=== PATIENT | male | born 1985 | race Caucasian/White ===

== ENCOUNTER → 2019-09-02 07:11 | Outpatient (CLI) | payer OTHER, MEDICAID, SELFPAY ==
[2019-09-02 07:59] LABS: Hematocrit 46.2 % (41-53); Hemoglobin 16.2 g/dL (13.5-17.5); Mean Corpuscular Hemoglobin 30.1 PG (26-34); Mean Corpuscular Volume 86.2 fL (80-100); Platelet Count 254 X10^3/uL (150-400); Red Blood Cell Count 5.36 X10^6/uL (4.5-5.9); Red Cell Distribution Width 12.7 % (11.6-14.8); White Blood Cell Count 7.6 X10^3/uL (4.5-11.0)
[2019-09-02 08:12] LABS: Alanine Aminotransferase 89 IU/L (21-72); Albumin 4.6 g/dL (3.5-5.0); Albumin Globulin Ratio 1.5 (1.0-2.8); Alkaline Phosphatase 112 U/L (38-126); Aspartate Aminotransferase 47 IU/L (17-59); BUN Creatinine Ratio 21.1 (6-22); Bilirubin Total 0.5 mg/dL (0.2-1.3); Blood Urea Nitrogen 19 mg/dL (9-20); Calcium 9.6 mg/dL (8.4-10.2); Carbon Dioxide 24 mmol/L (22-32); Chloride 105 mmol/L (98-107); Cholesterol 207 mg/dL (140-199); Estimated Glomerular Filt Rate > 60.0 mL/min (>60); Glucose 91 mg/dL (70-100); HDL Cholesterol 35 mg/dL (40-60); HEMOLYSIS < 15 (0-50); LDL Cholesterol Calculated 125 mg/dL (<100); Potassium 4.1 mmol/L (3.4-5.1); Sodium 139 mmol/L (137-145); Total Protein 7.6 g/dL (6.3-8.2); Triglycerides 237 mg/dL (35-150)
[2019-09-02 12:36] LABS: Creatinine Urine Random 69.6 mg/dL
[2019-09-02 12:41] LABS: Microalbumi Creatinin Ratio Ur 8.6 ug/mg CR (<30); Microalbumin Urine Random < 0.6 mg/dL (0-1.6)
== END ==
PROVIDERS: PCP Nurse Practitioner Family; Visit Provider Nurse Practitioner Family
DX: I10 Essential (primary) hypertension (principal); R10.11 Right upper quadrant pain; Z13.6 Encounter for screening for cardiovascular disorders
CPT/HCPCS: 36415; 80053; 80061; 82043; 82570; 85027

== ENCOUNTER 2019-09-22 09:23 | Day surgery (SDC) | payer OTHER, MEDICAID, SELFPAY ==
[2019-09-15 13:20] VITALS: BMI 37.7
[2019-09-22] VITALS (8 sets, daily range): BP systolic 107–138; BP diastolic 60–80; PULSE 72–100; RESP 15–18; TEMP 36.4–36.7; O2SAT 94–96; BMI 37.7
--- NOTE | 2019-09-22 | PATH_ITS ---
[facility] Accession Number: [id number] . 01 Material submitted: . gallbladder - GALLBLADDER AND CONTENTS . 02 Diagnosis: Gallbladder and Contents, Cholecystectomy: Mild chronic cholecystitis. No calculi grossly identified. No evidence of neoplasm. MRV 09/24/2019 1105 Local . 02 Electronically signed: . Dylon Jasmine MD, PhD, Pathologist NPI- [id number] . 01 Gross description: . Specimen is received in a formalin-filled container, labeled gallbladder and contents, and consists of a pink-pryor, smooth to cauterized, intact gallbladder, 6.8 x 3.4 x 2.7 cm, in which the cystic duct margin is inked blue. There are no calculi grossly identified. The mucosa is pryor-green, diffusely velvety, focally trabeculated with the average wall thickness of 0.3 cm. Pond Tender sections including blue-inked cystic duct margin are submitted in A1. ([id number]) /MRV 09/23/2019 1046 Local . 02 Pathologist provided ICD-10: K81.1 . 02 CPT . 978863 Performed at: 01 [facility] [address] [facility], [place], [place] [id number] MD Torito Purdy MD Phone: [phone] Performed at: 02 [facility] [address] [place], [place] [id number] MD Marly Arenas MD Phone: [phone]
[2019-09-22] MEDS: LACTATED RINGERS 1,000 ML 42 ML IV (10:04)
--- NOTE | 2019-09-22 10:12 | PM.HP.1 ---
History of Present Illness History of Present Illness Date Patient Seen: 09/22/19 Time Patient Seen: 10:12 Chief complaint: [id number] Narrative: This is a 33 yo man with history of obesity, alcohol abuse in remission, and two months of RUQ pain after eating. He was seen at [facility] and RUQ US revealed gall bladder sludge. He had a mild elevation of his LFT's, but not obstructive. He denies jaundice, fevers, nausea, vomiting. His complaint is sharp right flank and RUQ pain which comes on after eating, and migrates to the supraumbilical abdomen. He says the pain comes every time he eats regardless of what he eats. He says he has elevated blood pressure and heart rate during these episodes. He was started on Metoprolol on 08/06. He has a history of subjective palpitations and arrhythmia, and was recently seen by studio operations engineer in charge and cleared for surgery. His metoprolol was doubled at that visit. He has been taking 25 mg b.i.d. for the last nearly 2 weeks. He sometimes feels burning in his chest, but denies ever having a known heart attack. He denies diarrhea. Sometimes has constipation. He continues to have biliary colic since his visit with me last month. ROS: as per HPI. Otherwise 13 system review is negative. PE: GENERAL: Well groomed and cooperative. Appears stated age. Answers questions promptly and appropriately. Vital signs noted. HENT: Normocephalic, atraumatic. Hearing intact. Oral mucosa is pink and moist. EYES: Conjunctiva pink, sclera white, no periorbital swelling. CARDIOVASCULAR: Regular rate. No pedal edema. RESPIRATORY: Normal respiratory rate, breathing comfortably on room air. GASTROINTESTINAL: Abdomen soft, nontender, and non-distended GENITALURINARY: No flank tenderness. MUSCULOSKELETAL: Normal gait and coordination. Equal tone and mass bilaterally. SKIN: Warm, dry, soft, appropriate color for ethnicity. No other lesions, rashes, or wounds. NEURO: Alert and Oriented X 3. Good coordination. No ataxia, or sensory deficits, or cognitive issues. PSYCH: Appropriate affect and mood. Patient History Medical History Essential hypertension (Acute 07/2019) Heart palpitations (Acute) Intermittent palpitations (Acute) Obesity (BMI 35.0-39.9 without comorbidity) (Acute) RUQ abdominal pain (Acute 06/2019) Family & Social History Social History: household members significant other,other,children other Collecting baseball Tobacco & Substance use: Tobacco type e-cigarettes Smoking Status Former smoker alcohol intake former Substance Use Type marijuana Meds Home Medications and Allergies Home Medications Medication Instructions Recorded Confirmed Type metoprolol tartrate 25 mg tablet See Rx Instructions PO .COMPLEX 09/10/19 09/22/19 Rx #90 tab Allergies Allergy/AdvReac Type Severity Reaction Status Date / Time No Known Drug Allergies Allergy Unverified 09/07/19 09:27 Exam Vital Signs (past 8 hours): - 09/22/19 09:50 Temperature 97.8 F Pulse Rate 75 Respiratory Rate 16 Blood Pressure 122/80 Pulse Oximetry 96 Oxygen Delivery Method Room Air Assessment & Plan Assessment and plan (1) Biliary sludge: Current visit: No Status: Acute (2) RUQ abdominal pain: Current visit: No Status: Acute (3) Intermittent palpitations: Current visit: No Status: Acute (4) Obesity (BMI 35.0-39.9 without comorbidity): Current visit: No Status: Acute (5) Mixed hyperlipidemia: Current visit: No Status: Acute (6) Elevated liver function tests: Current visit: No Status: Acute Assessment & Plan narrative: This is a 33-year-old man with symptomatic cholelithiasis. He is here for laparoscopic, possible open cholecystectomy. Risks and benefits of the procedure were discussed with the patient who desires to proceed with surgery. Plan: Laparoscopic, possible open cholecystectomy Quality VTE Deep Vein Thrombosis/Pulmonary Embolism Present on Admission: No
[2019-09-22] MEDS: AMPICILLIN/SULBACTAM 3 GM 3 GM in SODIUM CHLORIDE 0.9% 100 ML IV (10:40)
[2019-09-22] MEDS: BUPIVACAINE 0.25% W/ EPI 30 ML VIAL INJ ×2 (11:01→12:09)
--- NOTE | 2019-09-22 12:24 | PM.OP.1 ---
Operative Date/Time/Diagnoses Date of procedure: 09/22/19 Time of procedure: 12:25 Pre-op diagnosis: Symptomatic cholelithiasis Post-op diagnosis: other (acute on chronic cholecystitis, symptomatic cholelithiasis) Procedure & Clinicians Procedure: Laparoscopic cholecystectomy with Indocyanine green cholangiography, CPT 29488 Same procedure as scheduled: Yes Indications: Symptomatic cholelithiasis Surgeon: Regine Culp Click Yes if Unassisted: Yes Operative Notes Findings: Dense adhesions of omentum to gall bladder surface; heavy scar tissue at triangle of calot ICG used to illuminate and differentiate ducts Specimen(s): other (Gallbladder) Estimated Blood Loss (mL): 5 Blood products transfused: none Procedure in detail: The patient was brought into the operating room and placed supine on the OR table. Sequential compression devices were placed on both legs and turned on. Appropriate perioperative antibiotics were given prior to the start of surgery. General anesthesia was induced the patient was intubated. The abdomen was prepped and draped in sterile fashion. Surgical time-out was conducted. Local anesthetic was injected under the skin just superior to the umbilicus and a 5 mm vertical incision was made at this site. The umbilical stalk was grasped with a Michael and elevated. A Veress needle was passed through the fascia into proper position. The position was tested with a saline drop test which was appropriate for intra-abdominal Veress needle placement. The abdomen was then insufflated in the usual fashion. Once insufflated to 15 mm Hg the Veress needle was removed and a 5 mm optical trocar was placed under direct vision using a 5 mm 30 degree scope. Once the camera was inside the abdomen I took a look around. There was no injury from port placement. Two additional ports were placed in a similar fashion in the right upper quadrant and a 10 mm port was placed in the epigastrium. The gallbladder was socked in with adherent omentum. I was able to clear some of the omentum from the apex of the gallbladder fundus using a spreading technique with the [place] grasper. Once the fundus was visible, it was grasped with a toothed locking grasper and elevated. More of the dense adherent omentum was carefully taken down until most of the gallbladder came into view. The omentum was adherent to the medial side very thickly, and was taken down with a [place] grasper, and hook cautery. Once the infundibulum of the gallbladder was visible it was grasped with another toothed grasper and elevated. The infundibulum was retracted laterally to the patient's right. This exposed the region of the gallbladder hilum and allowed for dissection of the cystic duct and cystic artery. There is quite a bit of dense scar tissue throughout the gallbladder hilum. This required tedious careful dissection to avoid injury to the bile ducts. ICG was given to the patient in the preop area, and now the fluorescent function on the camera was used to illuminate the ducts. Using the ICG fluorescent capability I was able to identify the cystic duct and to see that it was folded on itself. The common bile duct was down below, and well out of the way of the area of dissection. I continued to dissect along the lower border of the gallbladder and along the cystic duct, taking down heavy scar tissue, until the cystic duct was elongated and no longer folded beneath the gallbladder. The flourescence function was again used to clearly identify the cystic duct before clipping it. Once the cystic duct and artery were completely dissected out and I was able to see liver behind and between both structures without any other structures in the way, giving us the critical view of safety. There was no single large cystic artery structure, but rather several small arterial branches which were taken individually with electrocautery. At this point I doubly clipped the cystic duct and divided it with Metzenbaum scissors. Following this the gallbladder was gradually dissected free from the liver. Once the gallbladder was entirely freed, it was placed inside an Endo-Catch bag and removed through the epigastric port site. I did not have to enlarge the epigastric site in order to get the gallbladder out. Once it was out and passed off to the back table I then took another look inside the abdomen. I suctioned clean any remaining blood or fluid on the lateral side of the liver and in the subhepatic space. There was no active bleeding or leaking of bile from the gallbladder fossa or from the clipped stumps of the cystic duct and artery. The epigastric port site was closed with 0 Vicryl suture passed to the fascia with a suture Passer. At this point the insufflation was removed from the abdomen and the epigastric port was closed with 3 O Vicryl in the subcutaneous layers, and 4 Monocryl in the skin. The remaining port sites were closed with 4 Monocryl in the skin. Each port site was sealed with Dermabond. Local anesthetic was given at each of the port sites and in the fascia. This concluded the procedure. At this point the needle sponge and instrument counts were correct. The gallbladder was passed off the table for pathology. Patient was awakened from anesthesia and extubated. She was transferred to the postanesthesia care unit in stable condition. Complications: none Post-operative Condition: stable Disposition: PACU
--- NOTE | 2019-09-22 12:50 | SUR.PHASEI ---
report given to Sara GOODE
--- NOTE | 2019-09-22 13:00 | SUR.PHASEI ---
Patient awake tolerating po. Denies pain and nausea.
[2019-09-22] MEDS: OXYCODONE/ACETAMINOPHEN 5/325 TABLET 1 TAB PO (13:16)
--- NOTE | 2019-09-22 13:17 | SUR.PHASEII ---
Pt medicated with percocet, care turned over to RUSSEL Zaidi. Abdomen c/d/i.
--- NOTE | 2019-09-22 14:31 | SUR.PHASEII ---
Discharge note: VSS, O2 Sat WNL on room air. Abdomen soft. Tolerating po without nausea. Incisions CDI with glue.
== END 2019-09-22 14:45 | disposition home or self-care (01) ==
PROVIDERS: PCP Nurse Practitioner Family; Visit Provider Surgery
PROC: 0FT44ZZ Resection of Gallbladder, Percutaneous Endoscopic Approach (ICD-10-PCS; CPT 47562; principal; 2019-09-22 11:15)
DX: K66.0 Peritoneal adhesions (postprocedural) (postinfection) (principal); K81.1 Chronic cholecystitis; K82.8 Other specified diseases of gallbladder; I10 Essential (primary) hypertension; E66.9 Obesity, unspecified; Z68.35 Body mass index [BMI] 35.0-35.9, adult
CPT/HCPCS: 47563; J0295; J0360; J1100; J2405; J2704; J3010

== ENCOUNTER → 2019-11-16 13:08 | Outpatient (CLI) | payer OTHER, MEDICAID, SELFPAY ==
--- NOTE | 2019-11-16 13:12 | DI.RAD.S_ITS ---
PROCEDURE: XR CHEST 2V INDICATIONS: hemoptysis TECHNIQUE: 2 views of the chest were acquired. COMPARISON: None. FINDINGS: Surgical changes and devices: None. Lungs and pleura: Lungs are clear. No pleural effusions or pneumothorax. Mediastinum: Mediastinal contours are normal. Heart size is normal. Bones and chest wall: No suspicious bony abnormalities. Soft tissues appear unremarkable. IMPRESSION: No acute cardiopulmonary disease. Dictated by: Cesar Tian M.D. on 11/16/2019 at 15:30 Approved by: Cesar Tian M.D. on 11/16/2019 at 15:31
[2019-11-16 14:22] LABS: Add Manual Diff / Slide Review NO; Basophils Absolute Auto 100 /uL (0-100); Basophils Percent Auto 0.9 % (0-2); Eosinophils Absolute Auto 300 /uL (0-450); Eosinophils Percent Auto 3.2 % (2-4); Hematocrit 46.9 % (41-53); Hemoglobin 16.4 g/dL (13.5-17.5); Lymphocytes Absolute Auto 2100 /uL (1100-4500); Lymphocytes Percent Auto 25.7 % (25-40); Mean Corpuscular Hemoglobin 30.2 PG (26-34); Mean Corpuscular Volume 86.4 fL (80-100); Monocytes Absolute Auto 700 /uL (0-900); Monocytes Percent Auto 8.7 % (3-14); Neutrophils Absolute Auto 5000 /uL (1500-7000); Neutrophils Percent Auto 61.5 % (50-75); Platelet Count 336 X10^3/uL (150-400); Red Blood Cell Count 5.43 X10^6/uL (4.5-5.9); Red Cell Distribution Width 12.9 % (11.6-14.8); White Blood Cell Count 8.2 X10^3/uL (4.5-11.0)
[2019-12-02 12:50] LABS: Alanine Aminotransferase 124 IU/L (<50); Albumin 4.6 g/dL (3.5-5.0); Albumin Globulin Ratio 1.5 (1.0-2.8); Alkaline Phosphatase 113 U/L (38-126); Aspartate Aminotransferase 66 IU/L (17-59); BUN Creatinine Ratio 22.2 (6-22); Bilirubin Total 0.4 mg/dL (0.2-1.3); Blood Urea Nitrogen 20 mg/dL (9-20); Calcium 9.9 mg/dL (8.4-10.2); Carbon Dioxide 25 mmol/L (22-32); Chloride 107 mmol/L (98-107); Cholesterol 220 mg/dL (140-199); Estimated Glomerular Filt Rate > 60.0 mL/min (>60); Glucose 94 mg/dL (70-100); HDL Cholesterol 44 mg/dL (40-60); HEMOLYSIS < 15 (0-50); LDL Cholesterol Calculated 147 mg/dL (<100); Potassium 4.6 mmol/L (3.4-5.1); Sodium 142 mmol/L (137-145); Total Protein 7.6 g/dL (6.3-8.2); Triglycerides 147 mg/dL (35-150)
[2019-12-05 15:34] LABS: Mitogen-NIL > 10.00 IU/mL; NIL 0.01 IU/mL; QuantiFERON TB NEGATIVE (Negative); TB1-NIL < 0.01 IU/mL; TB2-NIL < 0.01 IU/mL
== END ==
PROVIDERS: PCP Nurse Practitioner Family; Visit Provider Nurse Practitioner Family
DX: R04.2 Hemoptysis (principal)
CPT/HCPCS: 36415; 71046; 80053; 80061; 85025; 86480

== ENCOUNTER → 2019-12-14 07:52 | Outpatient (CLI) | payer OTHER, MEDICAID, SELFPAY ==
--- NOTE | 2019-12-14 07:53 | DI.US.S_ITS ---
PROCEDURE: US ABDOMEN COMPLETE INDICATIONS: ABNORMAL LFTS TECHNIQUE: Real-time scanning was performed of the abdominal and retroperitoneal organs, with image documentation. COMPARISON: None. FINDINGS: Liver: The liver demonstrates normal size. The liver demonstrates generalized increased echogenicity. This decreases ultrasound sensitivity for detection of hepatic masses. The liver oral demonstrates a coarsened echotexture. An echogenic focus without increased vascularity can be seen involving the medial left lobe of the liver measuring up to 1.4 cm. Gallbladder: Removed. Biliary ducts: Intrahepatic bile ducts are non-dilated. Extrahepatic bile duct caliber measures 7 mm. Normal is 6-7 mm or less in diameter, or 10 mm or less post-cholecystectomy. Pancreas: Visualized portions of the pancreas are sonographically normal. Spleen: Spleen is normal in size and homogeneous in echotexture. Kidneys: Kidneys are normal in size and echotexture. Right kidney measures 11.3 cm long; left kidney measures 11.8 cm long. No hydronephrosis or nephrolithiasis. No solid masses. On the right superiorly, there is an 8mm simple cyst seen. Aorta: Visualized aorta is normal in caliber at less than 3 cm. Iliacs: Not seen. IVC: Not seen. Miscellaneous: No free abdominal fluid. IMPRESSION: A 1.4 cm hyperechoic focus can be seen within the left liver. Given the age of this patient, this is felt most likely to be related to a benign hemangioma. However, in this patient with abnormal LFTs, please consider a dedicated liver protocol MRI (without and with contrast) for further evaluation (assuming that there is no contraindication). Status post cholecystectomy. No biliary dilatation. Simple right renal cyst incidentally noted. Dictated by: Joe Taylor M.D. on 12/14/2019 at 11:30 Approved by: Joe Taylor M.D. on 12/14/2019 at 11:32
== END ==
PROVIDERS: PCP Nurse Practitioner Family; Referring Provider Nurse Practitioner Family; Visit Provider Nurse Practitioner Family
DX: R94.5 Abnormal results of liver function studies (principal); N28.1 Cyst of kidney, acquired; Z90.49 Acquired absence of other specified parts of digestive tract
CPT/HCPCS: 76700

== ENCOUNTER → 2019-12-30 06:18 | Outpatient (CLI) | payer OTHER, MEDICAID, SELFPAY ==
--- NOTE | 2019-12-30 06:19 | DI.MRI.S_ITS ---
PROCEDURE: MR ABDOMEN WO/W CON INDICATIONS: liver protocol, abnormal US TECHNIQUE: Coronal HASTE, axial 2D FLASH in- and tob-cy-hjxum; axial breath-hold T2 FSE. Dynamic axial VIBE during the administration of contrast; post-contrast coronal VIBE or 2D FLASH with fat saturation from the hepatic dome to the iliac crests. Optional diffusion weighted imaging and ADC may be performed. COMPARISON: [facility], US, US ABDOMEN COMPLETE, 12/14/2019, 8:05. FINDINGS: Image quality: Excellent. Lung bases: No basal pleural effusions. Heart size is normal. Solid organs: Liver is normal in size and enhancement, M.D. 1.5 cm maximal dimension sonographically documented structure seen 12/14/19 within the right hepatic lobe can again be seen by MR scanning. This has elevated T2 signal, and on contrast-enhancement shows discontinuous peripheral nodular enhancement with centripetal fill-in and homogeneous subsequent opacification on post contrast T1 imaging.. Gallbladder appears normal. Biliary system is non dilated. Pancreas is normal in morphology. Spleen is normal in size and enhancement. No adrenal nodules. Both kidneys demonstrate normal size and enhancement, without hydronephrosis. Nodes and vessels: No retroperitoneal or mesenteric adenopathy by size criteria. Aorta and inferior vena cava are normal in size. Bowel and peritoneum: Unenhanced bowel loops are normal in caliber. No free fluid. Bones and soft tissues: No ventral hernias. Bone marrow is normal in overall signal. IMPRESSION: 1.5 cm hemangioma produces the hyperechoic sonographically visible corresponding structure from ultrasound study performed 12/14/19. Benign etiology, no followup recommended. Dictated by: Caleb Corona M.D. on 12/30/2019 at 9:40 Approved by: Caleb Corona M.D. on 12/30/2019 at 9:45
== END ==
PROVIDERS: PCP Nurse Practitioner Family; Referring Provider Nurse Practitioner Family; Visit Provider Nurse Practitioner Family
DX: R94.5 Abnormal results of liver function studies (principal); R93.5 Abnormal findings on diagnostic imaging of other abdominal regions, including retroperitoneum; D18.09 Hemangioma of other sites
CPT/HCPCS: 74183; A9579

== ENCOUNTER → 2021-05-15 08:56 | Outpatient (CLI) | payer OTHER, MEDICAID, SELFPAY ==
[2021-05-15 10:28] LABS: Alanine Aminotransferase 46 IU/L (<50); Albumin 4.2 g/dL (3.5-5.0); Albumin Globulin Ratio 1.4 (1.0-2.8); Alkaline Phosphatase 116 U/L (38-126); Aspartate Aminotransferase 35 IU/L (17-59); BUN Creatinine Ratio 15.5 (6-22); Bilirubin Total 0.5 mg/dL (0.2-1.3); Blood Urea Nitrogen 13 mg/dL (9-20); Calcium 9.3 mg/dL (8.4-10.2); Carbon Dioxide 25 mmol/L (22-32); Chloride 107 mmol/L (98-107); Cholesterol 190 mg/dL (140-199); Estimated Glomerular Filt Rate > 60.0 mL/min (>60); Globulin 3.1 g/dL (1.7-4.1); Glucose 102 mg/dL (70-100); HDL Cholesterol 45 mg/dL (40-60); HEMOLYSIS < 15 (0-50); LDL Cholesterol Calculated 124 mg/dL (<100); Potassium 4.2 mmol/L (3.4-5.1); Sodium 140 mmol/L (137-145); Total Protein 7.3 g/dL (6.3-8.2); Triglycerides 107 mg/dL (35-150)
== END ==
PROVIDERS: PCP Nurse Practitioner Family; Referring Provider Registered Nurse; Visit Provider Registered Nurse
DX: I10 Essential (primary) hypertension (principal); E78.2 Mixed hyperlipidemia
CPT/HCPCS: 36415; 80053; 80061